=== PATIENT | male | born 1950 | race Caucasian/White ===

== ENCOUNTER 2017-06-28 14:31 | Emergency (ER) | payer OTHER ==
[~2017-06-28] VITALS: Ht 172.7 cm; Wt 73.9 kg
[2017-06-28] MEDS ORDERED: TETANUS/DIPHTHERIA TOX ADULT 0.5 ML SYR IM STA (14:48)
[2017-06-28] MEDS ORDERED: CEFAZOLIN SOD 500 MG VIAL IM STA (14:48)
--- NOTE | 2017-06-28 15:41 | Diagnostic Imaging Report ---
PROCEDURE:X-RAY LEFT FINGER COMPARISON:None. INDICATIONS:LACERATION FINDINGS: See conclusion. CONCLUSION: Cortical step-off of the proximal volar aspect of the middle phalanx of the right second digit, seen only on lateral view, suspicious for nondisplaced fracture. Diffuse periarticular osteopenia. Dictated by: Aj Knapp M.D. on 06/28/2017 at 15:50 Electronically approved by: Aj Knapp M.D. on 06/28/2017 at 15:50
[2017-06-28] MEDS ORDERED: BACITRACIN ZINC 0.9GM TP ONE (16:30)
[2017-06-28] MEDS ORDERED: LIDOCAINE HCL 1% LOCAL INJ 20 ML VIAL INJ ONE (16:30)
[2017-06-28] MEDS ORDERED: CEFAZOLIN SOD 1 GM VIAL IM NR (16:45)
== END 2017-06-28 18:48 | disposition home or self-care (01) ==
LOC: ER 14:31
DX: S61.211A Laceration without foreign body of left index finger without damage to nail, initial encounter (principal); S51.812A Laceration without foreign body of left forearm, initial encounter; S61.412A Laceration without foreign body of left hand, initial encounter; W29.8XXA Contact with other powered hand tools and household machinery, initial encounter; Y93.89 Activity, other specified; Y99.0 Civilian activity done for income or pay
CPT/HCPCS: 12002; 29130; 73090; 73140; 90471; 90714; 99284; J0690; J2001